=== PATIENT | female | born 1940 | race Caucasian/White ===

== ENCOUNTER 2021-07-06 15:25 | Outpatient (REF) | payer MEDICARE, SELFPAY ==
[2021-07-06 16:01] LABS: MANUAL DIFF FLAG NO
[2021-07-06 16:02] LABS: Basophils Percent Auto 0.4 % (0-2); Eosinophils Percent Auto 0.8 % (0-4); Hematocrit 32.3 % (37.0-47.0); Hemoglobin 10.6 g/dl (12.0-16.0); Imm Gran Abs Auto 0.01 X10*3/uL (0.00-0.03); Imm Gran Pct Auto 0.4 % (0.0-0.4); Lymphocytes Absolute Auto 1.1 X10*3/uL (1.2-4.9); Lymphocytes Percent Auto 42.8 % (20-40); Mean Corpuscular HGB Conc 32.8 g/dl (31.0-35.0); Mean Corpuscular Hemoglobin 32.1 pg (27.0-33.0); Mean Corpuscular Volume 97.9 fL (80.0-98.0); Mean Platelet Volume 8.6 fL (9.4-12.3); Monocytes Absolute Auto 0.2 X10*3/uL (0.1-1.2); Monocytes Percent Auto 9.1 % (2-11); Neutrophils Absolute Auto 1.2 x10*3/uL (2.0-8.3); Neutrophils Percent Auto 46.5 % (45-73); Platelet Count 118 X10*3/uL (160-400); Red Cell Distribution Width 13.1 % (11.0-16.0); White Blood Count 2.6 X10*3/uL (4.8-10.8)
[2021-07-06 16:19] LABS: Alanine Aminotransferase 22 U/L (0-31); Albumin Level 3.7 g/dL (3.5-5.0); Alkaline Phosphatase 169 U/L (39-117); Anion Gap 16 (12-20); Aspartate Amino Transferase 34 U/L (5-31); Bilirubin Total 0.4 mg/dL (0.0-1.0); Blood Urea Nitrogen 23 mg/dL (9-16); Calcium 9.2 mg/dL (8.4-10.2); Carbon Dioxide 16 mmol/L (22-29); Chloride 100 mmol/L (96-108); Estimated Glomerular Filt Rate 49; Glucose Random 97 mg/dL (60-115); Sodium 127 mmol/L (135-145); Total Protein 7.5 g/dL (6.5-8.0)
== END 2021-07-06 15:26 | disposition home or self-care (01) ==
LOC: HO.LAB 15:25
PROVIDERS: PCP Nurse Practitioner Family; Visit Provider Nurse Practitioner Family
DX: D72.819 Decreased white blood cell count, unspecified (principal); R79.89 Other specified abnormal findings of blood chemistry
CPT/HCPCS: 36415; 80053; 85025

== ENCOUNTER 2022-09-04 15:41 | Inpatient (IN) | payer MEDICARE, SELFPAY ==
--- NOTE | ~2022-09-04 | CT_ITS ---
EXAMINATION: CT CERVICAL SPINE WITHOUT CONTRAST CLINICAL INFORMATION: Status post fall. COMPARISON: None available. TECHNIQUE: Axial 3 mm thin and reformatted 2 mm thin sagittal and coronal images of cervical spine were obtained. This CT examination was performed using dose optimization techniques as appropriate, variously including the following: *Automated exposure control *Adjustment of mA and/or kV according to patient size (this includes techniques or standardized protocols for targeted exams where dose is matched to indication/reason for exam; i.e. extremities or head) *Use of iterative reconstruction technique DLP: 764 mGy-cm FINDINGS: There is mild straightening of cervical lordosis with grade 1 anterolisthesis C3 over C4. Rest of the vertebral alignment is normal. There is loss of C4-C5, C5-C6 and C6-C7 disc heights. The craniovertebral junction and the C1-C2 alignment is normal. There is mild C2-C3, C3-C4 and C4-C5 facet joint arthropathy and mild hypertrophy. There is no visible acute fracture, dislocation or subluxation. There is mild bilateral apical pleural thickening. The airway is widely patent. Thyroid lobes visualized submandibular and parotid glands are symmetrical and normal. No soft tissue mass or abnormal lymph nodes seen in the neck. CT/CT cervical spine wo IV con IMPRESSION: 1. No acute fracture, dislocation or subluxation seen. 2. There is grade 1 anterolisthesis C3 over C4. There are degenerative disc changes C4-C5, C5-C6 and C6-C7 disc levels. Fleischner guidelines were followed.
--- NOTE | ~2022-09-04 | CT_ITS ---
CT THORACIC SPINE CLINICAL INFORMATION: Post kyphoplasty. COMPARISON: Abdominal CT 09/04/2022. TECHNIQUE: A limited CT studies obtained of the thoracic spine spanning the mid T10 through the mid L2 levels. This CT examination was performed using dose optimization techniques as appropriate, variously including the following: *Automated exposure control *Adjustment of mA and/or kV according to patient size (this includes techniques or standardized protocols for targeted exams where dose is matched to indication/reason for exam; i.e. extremities or head) *Use of iterative reconstruction technique CT/CT thoracic spine post vert FINDINGS/IMPRESSION: Limited CT study demonstrates postoperative changes following vertebral body augmentation at T12. The cement is located entirely within the fractured T12 vertebral body. The T12 compression fracture is associated with similar 40% vertebral body height loss and 4 mm posterior vertebral body retropulsion.
--- NOTE | ~2022-09-04 | IR_ITS ---
EXAMINATION: IR THORACIC VERTEBROPLASTY CLINICAL INFORMATION: Acute T 12 compression fracture. Osteoporosis. COMPARISON: None available. TECHNIQUE: Following explaining fluoroscopy-guided T12 kyphoplasty procedure, benefits and risk, a written consent was obtained. Patient was placed prone on fluoroscopy table in angiography suite and T12 was localized on the skin. The area marked on the skin was cleaned and draped in usual sterile manner with 2% chlorhexidine solution. Sterile gown, mask, gloves and boots, including sterile drape was utilized during the exam. 1% lidocaine was injected subcutaneously. A 20-gauge spinal needle was then inserted from the skin to the level of right pedicle periosteum and 0.25 Marcaine was injected. Through a small skin incision 18-gauge Kyphon needle was advanced from the skin to the level of pedicle and through the pedicle into posterior one thirds of T12 vertebra. A second needle was advanced in a similar fashion from the skin to the left pedicle and through the left pedicle into posterior one-thirds of T12 vertebra. A simple hand drill was advanced to the right and left pedicle and track created. High tensile balloons were then inserted through the right needle followed by left needle and inflated to 300 psi for 5 minutes. The right balloon was deflated and freshly prepared polymethyl methacrylate was injected from the right needle to maintain the achieved height after balloon inflation. Quickly the left balloon was deflated and removed. Cement was then injected through the left needle under fluoroscopy into the T12 vertebra. After inserting adequate cement and observing no cement leak, both needles were withdrawn and complete hemostasis achieved at puncture site. Simple Band-Aid applied postprocedure. Patient was sedated by anesthesia department. FINDINGS: There is acute T12 compression fracture with approximately 35-40% loss of vertebral height. There is cement occupying the entire anterior two thirds of T12 vertebra with no cement extravasation visualized. FLUOROSCOPY TIME: 9.3 minutes. DOSE AREA PRODUCT: 2974 uGy-m2 (microgray-meter squared). IR/IR kyphoplasty thoracic IMPRESSION: 1. Successful fluoroscopic-guided T12 kyphoplasty. There is no cement leak. 2. Recommend physical therapy if clinically indicated and follow up with treatment and bone mineral density for osteoporosis.
--- NOTE | ~2022-09-04 | CT_ITS ---
EXAMINATION: CT ABDOMEN AND PELVIS WITH CONTRAST CLINICAL INFORMATION: Status post fall with low back pain and low platelets. COMPARISON: None available. TECHNIQUE: Multidetector volumetric images were obtained from the superior aspect of the liver through the pubic symphysis following administration 85 mL of Omnipaque 350 intravenous contrast. Sagittal and coronal reformatted images were obtained on the technologist's workstation. Oral contrast: No This CT examination was performed using dose optimization techniques as appropriate, variously including the following: *Automated exposure control *Adjustment of mA and/or kV according to patient size (this includes techniques or standardized protocols for targeted exams where dose is matched to indication/reason for exam; i.e. extremities or head) *Use of iterative reconstruction technique DLP: 349 mGy-cm FINDINGS: LUNG BASES: The lung bases are clear. The heart size is normal. LIVER, GALLBLADDER, AND BILIARY TREE: The liver is normal in size, shape, and attenuation. No focal hepatic lesion or biliary ductal dilatation is present. There is a gallbladder is distended with likely phrygian cap. The soft tissue thickening and/or mass within the phrygian cap best visualized on axial image 23/2. PANCREAS: Unremarkable. SPLEEN: Unremarkable. ADRENAL GLANDS: Unremarkable. KIDNEYS AND URETERS: The kidneys are normal in size, shape, and attenuation. No hydronephrosis, hydroureter, or calculi seen. No perinephric stranding. BLADDER: The bladder is nondistended with mild bladder wall thickening.. GASTROINTESTINAL TRACT: There is scattered stool and gas seen throughout the colon without significant distention. The small bowel loops are of normal caliber. Appendix is not seen with certainty.. ABDOMINAL WALL: No significant hernia is appreciated. LYMPH NODES: Normal. VASCULAR: There is atherosclerotic calcification of abdominal aorta without aneurysmal dilatation. PELVIC VISCERA: There is no free air or free fluid. The uterus is likely surgically absent or atrophied. OSSEOUS STRUCTURES: There is a compression fracture T12 vertebra with small posterior bony component projecting into the spinal canal. . Diffuse mild osteopenia CT/CT abdomen pelvis w IV con IMPRESSION: Acute T12 compression fracture with a small posterior bony component projecting in the spinal canal. This can be further treated with kyphoplasty. Mild constipation Fleischner guidelines were followed.
--- NOTE | ~2022-09-04 | CT_ITS ---
EXAMINATION: CT HEAD WITHOUT CONTRAST CLINICAL INFORMATION: Status post fall COMPARISON: None available. TECHNIQUE: Contiguous axial imaging was performed from the skull base to vertex without intravenous administration of contrast. This CT examination was performed using dose optimization techniques as appropriate, variously including the following: *Automated exposure control *Adjustment of mA and/or kV according to patient size (this includes techniques or standardized protocols for targeted exams where dose is matched to indication/reason for exam; i.e. extremities or head) *Use of iterative reconstruction technique DLP: 553 mGy-cm FINDINGS: There is no acute intra-axial, extra-axial bleed, masses or midline shift. There is no acute infarction in evolution. The duvall to white matter differentiation is maintained normal. There is diffuse periventricular hypodensity suggestive of chronic small vessel ischemic changes. Bone windows reveal no calvarial abnormality. Bilateral paranasal sinuses and mastoid air cells are well-aerated. CT/CT head/brain wo IV con IMPRESSION: 1. No acute intracranial process seen. 2. Chronic small vessel ischemic changes in both cerebral hemispheres.
[2022-09-04 15:49] VITALS: BP 151/73; PULSE 78; RESP 16; TEMP 36.4; O2SAT 94; BMI 21.1
--- NOTE | 2022-09-04 16:23 | ED.FALL ---
HPI - Fall General Chief Complaint: Fall Stated Complaint: WITNESSED FALL,SKIN TEAR R ARM,REFUSED COLLAR Time Seen by Provider: 09/04/22 16:23 Source: patient Mode of arrival: ambulatory Limitations: no limitations History of Present Illness HPI Narrative: 82 years old history of alcohol use, hypertension has not taken medication for last 2 weeks walks without any support was walking in the kitchen lost balance and fell hitting her right forearm to the Fridge and had the Fridge door and the lower back to the ground no loss of consciousness no chest pain or palpitation patient remember the fall feels just mechanical fall no history of frequent falls no headache or neck pain complaining of low back pain never had any back problem before. In the ER patient was nauseated and vomited small amount once Related Data Home Medications Medication Instructions Recorded Confirmed allopurinol 100 mg tablet 100 mg PO DAILY 09/04/22 09/04/22 donepezil 10 mg tablet 10 mg PO DAILY 09/04/22 09/04/22 hydralazine 25 mg tablet 25 mg PO TID 09/04/22 09/04/22 lisinopril 2.5 mg tablet 2.5 mg PO DAILY 09/04/22 09/04/22 metoprolol succinate 50 mg 50 mg PO DAILY 09/04/22 09/04/22 tablet,extended release 24 hr thiamine HCl (vitamin B1) 50 mg 50 mg PO DAILY 09/04/22 09/04/22 tablet Allergies Allergy/AdvReac Type Severity Reaction Status Date / Time penicillin V Allergy Unknown Verified 10/06/15 00:00 Penicillins [PCN] Allergy Unknown RASH Unverified 01/03/20 17:22 Review of Systems Review of Systems: Yes all other systems are reviewed and are negative COUNTS INCLUDE 234 BEDS AT THE [facility] Past Medical History Medical History Gout Hypertension Surgical History H/O: hysterectomy History of appendectomy Social History Social History Alcohol intake: current Alcohol intake frequency: 0-2 drinks per day Smoked in Last 30 Days: No Use of substances other than those prescribed or required for medical reasons: No Advance Directives: No Advance Directives Information Provided: Yes Physical Exam Vital Signs: Vital Signs: Last Vital Signs Temp 97.9 F 09/04/22 23:12 Pulse 85 09/04/22 23:12 Resp 16 09/04/22 23:12 BP 168/95 H 09/04/22 23:12 Pulse Ox 93 09/04/22 23:12 O2 Del Method Room Air 09/04/22 23:12 BMI result Body Mass Index 21.1 Appearance: Alert. Oriented X3. No acute distress. Eyes: PERRLA, No Nystagmus ENT: Pharynx normal. Oral Mucosa moist Neck: Normal inspection. Neck supple. CVS: Normal heart rate and rhythm. Pulses normal. Respiratory: No respiratory distress. Equal air entry bilateral, no wheezing/rales/rhonchi Abdomen: Soft and nontender. Bowel sounds are present, no mass palpable, no CVA tenderness Skin: Skin warm and dry. Normal skin color. Normal skin turgor. Extremities: No lower extremity edema. No calf tenderness , skin tear right forearm back; midline tenderness T12, L1 spine Neuro: Oriented X 3. No motor deficit. No sensory deficit deep tendon reflexes 2+ good range of movement of lower extremities secral sensation intact Medications Administered Discontinued Medications Generic Name Dose Route Start Last Admin Trade Name Freq PRN Reason Stop Dose Admin Morphine Sulfate 4 mg 09/04/22 16:32 09/04/22 16:49 Morphine Sulfate 4 Mg/Ml Cartridge IVPUSH 09/04/22 16:33 4 mg ONCE ONE Administration Protocol Morphine Sulfate 4 mg 09/04/22 22:22 09/04/22 23:08 Morphine Sulfate 4 Mg/Ml Cartridge IVPUSH 09/04/22 22:23 4 mg ONCE ONE Administration Protocol Ondansetron HCl 4 mg 09/04/22 16:23 09/04/22 16:28 Ondansetron Odt 4 Mg Tab.Rapdis TRANSLINGU 09/04/22 16:24 4 mg ONCE ONE Administration Ondansetron HCl 4 mg 09/04/22 18:18 09/04/22 18:20 Ondansetron Hcl 4 Mg/2 Ml Vial IVPUSH 09/04/22 18:19 4 mg ONCE ONE Administration Medical Decision Making Medical Decision Making MDM Narrative: Patient with mechanical fall with acute T12 fracture without any neuro deficit. Case discussed with neurosurgery at [facility] surgical candidate back brace and possible vertebroplasty. Case discussed Dr. lugo who saw the CT scan will do vertebroplasty in 2 days. Consult Healthcare Provider Management of the patient was discussed with: Hospitalist Lab Data MDM Lab Attestation statement: I reviewed the patient's lab results. 09/04/22 16:47 09/04/22 16:47 Labs: Lab Results 09/04/22 09/04/22 09/04/22 Range/Units 16:47 16:47 16:47 WBC 3.0 L (4.8-10.8) X10*3/uL RBC 4.12 L D (4.20-5.50) X10*6/uL Hgb 13.2 D (12.0-16.0) g/dl Hct 39.7 D (37.0-47.0) % MCV 96.4 (80.0-98.0) fL MCH 32.0 (27.0-33.0) pg MCHC 33.2 (31.0-35.0) g/dl RDW 13.5 (11.0-16.0) % Plt Count 104 L (160-400) X10*3/uL MPV 8.3 L (9.4-12.3) fL Immature Gran % (Auto) 1.7 H (0.0-0.4) % Neut % (Auto) 69.5 (45-73) % Lymph % (Auto) 25.5 (20-40) % Haralson % (Auto) 3.0 (2-11) % Eos % (Auto) 0.0 (0-4) % Baso % (Auto) 0.3 (0-2) % Lymph # (Auto) 0.8 L (1.2-4.9) X10*3/uL Haralson # (Auto) 0.1 (0.1-1.2) X10*3/uL Eos # (Auto) 0.0 (0.0-0.4) X10*3/uL Baso # (Auto) 0.0 (0.0-0.2) X10*3/uL Abs Immat Gran (auto) 0.05 H (0.00-0.03) X10*3/uL Absolute Neuts (auto) 2.1 (2.0-8.3) x10*3/uL Absolute Nucleated RBC 0.000 (0.0-0.012) X10*3/uL Nucleated RBC % (auto) 0.0 (0.0-0.2) /100WBC PT (10.0-13.1) SEC INR (0.9-1.1) Sodium Cancelled 140 Potassium Cancelled 4.4 Chloride Cancelled 106 Carbon Dioxide Cancelled 22 Anion Gap Cancelled 16 BUN Cancelled 21 H Creatinine Cancelled 0.95 Estim Creat Clear Calc Cancelled 33.2 Estimated GFR Cancelled 56 Random Glucose Cancelled 137 H Calcium Cancelled 9.7 Total Bilirubin Cancelled 0.6 AST Cancelled 37 H ALT Cancelled 18 Alkaline Phosphatase Cancelled 183 H Troponin I High Sens (<3.5-17.0) ng/L Total Protein Cancelled 7.9 Albumin Cancelled 3.9 Ethyl Alcohol < 10 mg/dL 09/04/22 09/04/22 Range/Units 16:48 16:48 WBC (4.8-10.8) X10*3/uL RBC (4.20-5.50) X10*6/uL Hgb (12.0-16.0) g/dl Hct (37.0-47.0) % MCV (80.0-98.0) fL MCH (27.0-33.0) pg MCHC (31.0-35.0) g/dl RDW (11.0-16.0) % Plt Count (160-400) X10*3/uL MPV (9.4-12.3) fL Immature Gran % (Auto) (0.0-0.4) % Neut % (Auto) (45-73) % Lymph % (Auto) (20-40) % Haralson % (Auto) (2-11) % Eos % (Auto) (0-4) % Baso % (Auto) (0-2) % Lymph # (Auto) (1.2-4.9) X10*3/uL Haralson # (Auto) (0.1-1.2) X10*3/uL Eos # (Auto) (0.0-0.4) X10*3/uL Baso # (Auto) (0.0-0.2) X10*3/uL Abs Immat Gran (auto) (0.00-0.03) X10*3/uL Absolute Neuts (auto) (2.0-8.3) x10*3/uL Absolute Nucleated RBC (0.0-0.012) X10*3/uL Nucleated RBC % (auto) (0.0-0.2) /100WBC PT 11.9 (10.0-13.1) SEC INR 1.0 (0.9-1.1) Sodium Potassium Chloride Carbon Dioxide Anion Gap BUN Creatinine Estim Creat Clear Calc Estimated GFR Random Glucose Calcium Total Bilirubin AST ALT Alkaline Phosphatase Troponin I High Sens < 2.7 (<3.5-17.0) ng/L Total Protein Albumin Ethyl Alcohol mg/dL Independent Interpretation I performed an independent interpretation of an: EKG Interpretation: Normal sinus rhythm heart rate 79 beats per minute normal interval normal axis no acute ST changes no acute ischemia Radiology Impression Discussion of test interpretation with radiology: I discussed test interpretation with the radiologist and I have reviewed the radiologist's reading. Radiologist Impression: CT/CT abdomen pelvis w IV con IMPRESSION: Acute T12 compression fracture with a small posterior bony component projecting in the spinal canal. This can be further treated with kyphoplasty. ? Mild constipation ?There is acute T12 compression fracture with small posterior bony component projecting into the spinal canal but no spinal canal stenosis or narrowing seen. The neural foramina are widely patent. Fleischner guidelines were followed. Discharge Plan Discharge Clinical Impression: T12 compression fracture, Fall Patient Disposition: Admitted As Inpatient
[2022-09-04] MEDS: Ondansetron ODT 4 MG TAB.RAPDIS TRANSLINGU (16:28)
--- NOTE | 2022-09-04 16:30 | ECG_ITS ---
Test Reason : FALL Blood Pressure : / mmHG Vent. Rate : 079 BPM Atrial Rate : 079 BPM P-R Int : 150 ms QRS Dur : 072 ms QT Int : 380 ms P-R-T Axes : 009 -23 018 degrees QTc Int : 435 ms Normal sinus rhythm Nonspecific T wave abnormality Abnormal ECG No previous ECGs available Referred By: Marv Mcleod Electronically Signed By:Fitz White
[2022-09-04] MEDS: Morphine Sulfate 4 MG/ML CARTRIDGE IVPUSH ×2 (16:49→23:08)
[2022-09-04 16:50] LABS: MANUAL DIFF FLAG NO
[2022-09-04 16:52] LABS: Basophils Percent Auto 0.3 % (0-2); Hematocrit 39.7 % (37.0-47.0); Hemoglobin 13.2 g/dl (12.0-16.0); Imm Gran Abs Auto 0.05 X10*3/uL (0.00-0.03); Imm Gran Pct Auto 1.7 % (0.0-0.4); Lymphocytes Absolute Auto 0.8 X10*3/uL (1.2-4.9); Lymphocytes Percent Auto 25.5 % (20-40); Mean Corpuscular HGB Conc 33.2 g/dl (31.0-35.0); Mean Corpuscular Volume 96.4 fL (80.0-98.0); Mean Platelet Volume 8.3 fL (9.4-12.3); Monocytes Absolute Auto 0.1 X10*3/uL (0.1-1.2); Neutrophils Absolute Auto 2.1 x10*3/uL (2.0-8.3); Neutrophils Percent Auto 69.5 % (45-73); Platelet Count 104 X10*3/uL (160-400); Red Blood Count 4.12 X10*6/uL (4.20-5.50); Red Cell Distribution Width 13.5 % (11.0-16.0)
[2022-09-04 17:01] LABS: Prothrombin Time 11.9 SEC (10.0-13.1)
--- NOTE | 2022-09-04 17:11 | PC.NURSE ---
20g IV placed in LAC, all labs drawn. Pt is now resting with some relief with morphine. Hot pack placed on back
[2022-09-04 17:14] LABS: Alanine Aminotransferase 18 U/L (0-31); Albumin Level 3.9 g/dL (3.5-5.0); Alkaline Phosphatase 183 U/L (39-117); Anion Gap 16 (12-20); Aspartate Amino Transferase 37 U/L (5-31); Bilirubin Total 0.6 mg/dL (0.0-1.0); Blood Urea Nitrogen 21 mg/dL (9-16); Calcium 9.7 mg/dL (8.4-10.2); Carbon Dioxide 22 mmol/L (22-29); Chloride 106 mmol/L (96-108); Creatinine Clr Calc Pharmacy 33.2; Estimated Glomerular Filt Rate 56; Ethanol < 10 mg/dL; Glucose Random 137 mg/dL (60-115); Potassium 4.4 mmol/L (3.3-5.1); Sodium 140 mmol/L (135-145); Total Protein 7.9 g/dL (6.5-8.0)
[2022-09-04 17:14] LABS: Troponin-I High Sensitivity < 2.7 ng/L (<3.5-17.0)
[2022-09-04] MEDS: ondansetron HCL 4 MG/2 ML VIAL IVPUSH (18:20)
[2022-09-04 22:06] VITALS: BP 154/71; PULSE 73; RESP 16; TEMP 36.9; O2SAT 91
--- NOTE | 2022-09-04 23:11 | PM.IMHP ---
History of Present Illness Date of Service: 09/04/22 Chief Complaint: fall 82-year-old female past medical history of hypertension, gout presents to the hospital with complaints of a fall and pain in the midback. Patient reports that she was standing, went to turn around, slipped and fell, no head injury, she fell on her back, no loss of consciousness prior or after, no seizure-like activity, no chest pain, no palpitations, no dizziness, no headache no change in vision, denies any nausea vomiting, no abdominal pain, no diarrhea constipation, no urinary symptoms and no lower extremity edema. she has mid back pain, 10/10, constant, nonradiating, no associated with numbness tingling or weakness in the lower extremities. On arrival to the ED patient found to have slightly elevated blood pressure but otherwise stable Labs are significant for WBC count of 3.0, hemoglobin of 13.2, hematocrit 39.7, labs otherwise unremarkable, no acute infection, slightly elevated AST of 37, patient does drink 3 short in a per day, no history of alcohol withdrawals abdomen pelvic CT shows T12 compression fracture with a small posterior bony component projecting in the spina canal, this can be treated with kyphoplasty Dr. Garner from Interventional Radiology was also called by ED after reviewing CT states that will do kyphoplasty on Tuesday, neurosurgery from [facility] was consulted, Recommended medical intervention. Review of Systems Review of Systems: Yes all other systems are reviewed and are negative [facility] Medical History Gout Hypertension Surgical History H/O: hysterectomy History of appendectomy Social History Alcohol intake: current Alcohol intake frequency: 0-2 drinks per day Smoked in Last 30 Days: No Use of substances other than those prescribed or required for medical reasons: No Advance Directives: No Advance Directives Information Provided: Yes Meds Allergies Allergy/AdvReac Type Severity Reaction Status Date / Time penicillin V Allergy Unknown Verified 10/06/15 00:00 Penicillins [PCN] Allergy Unknown RASH Unverified 01/03/20 17:22 Active Medications: Current Medications Acetaminophen (Acetaminophen 325 Mg Tablet) 650 mg PO Q6H PRN PRN Reason: Pain, Mild (Pain Scale 1-3) Docusate Sodium (Docusate Sodium 100 Mg Capsule) 100 mg PO DAILY PRN PRN Reason: Constipation Enoxaparin Sodium (Enoxaparin Sodium 40 Mg/0.4 Ml Syringe) 40 mg SUBCUT Q24H ZEYAD Morphine Sulfate (Morphine Sulfate 4 Mg/Ml Cartridge) 4 mg IVPUSH Q4H PRN; Protocol PRN Reason: Pain, Severe (Pain Scale 7-10) Ondansetron HCl (Ondansetron Hcl 4 Mg/2 Ml Vial) 4 mg IVPUSH Q8H PRN PRN Reason: Nausea and Vomiting Sodium Chloride (0.9 % Sodium Chloride Flush 3 Ml Syringe) 3 ml IVFLUSH QSHIFT ZEYAD Physical Exam Vital Signs and Narrative: Vital Signs: Last Vital Signs Temp 98.4 F 09/04/22 22:06 Pulse 73 09/04/22 22:06 Resp 16 09/04/22 22:06 BP 154/71 H 09/04/22 22:06 Pulse Ox 91 L 09/04/22 22:06 O2 Del Method Room Air 09/04/22 22:06 BMI result Body Mass Index 21.1 Const: General: cooperative and no acute distress Orientation/consciousness: patient oriented x3 Eyes: General: appearance normal, both eyes and all related structures Resp: Effort & Inspection: normal respiratory effort Auscultation: clear to auscultation bilaterally Cardio: Rate: regular rate Rhythm: regular rhythm GI: Palpation (GI): Soft to palpation Auscultation: normal bowel sounds Skin: General skin exam: no rashes or lesions noted Neuro: General: patient oriented x3 Cognition (Neuro): normal cognition Extrem: Other: patient has limited movement due to the severe pain she is experiencing in her back General: Yes normal to inspection and Yes no pedal edema Results Labs 09/04/22 16:47 09/04/22 16:47 Labs: Laboratory Results - last 24 hr 09/04/22 09/04/22 09/04/22 16:47 16:47 16:47 MCV 96.4 MCH 32.0 MCHC 33.2 RDW 13.5 Plt Count 104 L MPV 8.3 L Immature Gran % (Auto) 1.7 H Neut % (Auto) 69.5 Lymph % (Auto) 25.5 Armstrong % (Auto) 3.0 Eos % (Auto) 0.0 Baso % (Auto) 0.3 Lymph # (Auto) 0.8 L Armstrong # (Auto) 0.1 Eos # (Auto) 0.0 Baso # (Auto) 0.0 Abs Immat Gran (auto) 0.05 H Absolute Neuts (auto) 2.1 Absolute Nucleated RBC 0.000 Nucleated RBC % (auto) 0.0 PT INR Anion Gap Cancelled 16 Estim Creat Clear Calc Cancelled 33.2 Estimated GFR Cancelled 56 Random Glucose Cancelled 137 H Calcium Cancelled 9.7 Total Bilirubin Cancelled 0.6 AST Cancelled 37 H ALT Cancelled 18 Alkaline Phosphatase Cancelled 183 H Troponin I High Sens Total Protein Cancelled 7.9 Albumin Cancelled 3.9 Ethyl Alcohol < 10 09/04/22 09/04/22 16:48 16:48 MCV MCH MCHC RDW Plt Count MPV Immature Gran % (Auto) Neut % (Auto) Lymph % (Auto) Armstrong % (Auto) Eos % (Auto) Baso % (Auto) Lymph # (Auto) Armstrong # (Auto) Eos # (Auto) Baso # (Auto) Abs Immat Gran (auto) Absolute Neuts (auto) Absolute Nucleated RBC Nucleated RBC % (auto) PT 11.9 INR 1.0 Anion Gap Estim Creat Clear Calc Estimated GFR Random Glucose Calcium Total Bilirubin AST ALT Alkaline Phosphatase Troponin I High Sens < 2.7 Total Protein Albumin Ethyl Alcohol Imaging Radiologist's Impressions: Impressions Cervical Spine CT 09/04/22 18:32 IMPRESSION: 1. No acute fracture, dislocation or subluxation seen. 2. There is grade 1 anterolisthesis C3 over C4. There are degenerative disc changes C4-C5, C5-C6 and C6-C7 disc levels. Fleischner guidelines were followed. Head CT 09/04/22 18:32 IMPRESSION: 1. No acute intracranial process seen. 2. Chronic small vessel ischemic changes in both cerebral hemispheres. Abdomen/Pelvis CT 09/04/22 18:56 IMPRESSION: Acute T12 compression fracture with a small posterior bony component projecting in the spinal canal. This can be further treated with kyphoplasty. Mild constipation Fleischner guidelines were followed. 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 Quality Stroke Does the patient have a stroke diagnosis?: No VTE Prior VTE?: No VTE Risk Level:: Medical - moderate - high VTE Device Contraindication: Treatment Not Indicated VTE Drug Contraindication: N/A - Med Ordered
[2022-09-04 23:12] VITALS: BP 168/95; PULSE 85; RESP 16; TEMP 36.6; O2SAT 93
--- NOTE | 2022-09-04 23:50 | MHC.EDTECH ---
i took over this assignment 9-, vitals taken and entered pt has a rodriguez cath
[2022-09-05] VITALS (7 sets, daily range): BP systolic 127–173; BP diastolic 62–79; PULSE 65–81; RESP 16–18; TEMP 36.3–36.9; O2SAT 88–98; BMI 20.8
[2022-09-05] MEDS: Morphine Sulfate 4 MG/ML CARTRIDGE IVPUSH (06:13)
[2022-09-05 06:38] LABS: Basophils Percent Auto 0.3 % (0-2); Eosinophils Percent Auto 0.6 % (0-4); Hematocrit 31.4 % (37.0-47.0); Hemoglobin 10.5 g/dl (12.0-16.0); Imm Gran Abs Auto 0.02 X10*3/uL (0.00-0.03); Imm Gran Pct Auto 0.6 % (0.0-0.4); Lymphocytes Absolute Auto 1.4 X10*3/uL (1.2-4.9); Lymphocytes Percent Auto 45.8 % (20-40); MANUAL DIFF FLAG NO; Mean Corpuscular HGB Conc 33.4 g/dl (31.0-35.0); Mean Corpuscular Hemoglobin 31.9 pg (27.0-33.0); Mean Corpuscular Volume 95.4 fL (80.0-98.0); Mean Platelet Volume 8.9 fL (9.4-12.3); Monocytes Absolute Auto 0.3 X10*3/uL (0.1-1.2); Monocytes Percent Auto 10.4 % (2-11); Neutrophils Absolute Auto 1.3 x10*3/uL (2.0-8.3); Neutrophils Percent Auto 42.3 % (45-73); Platelet Count 110 X10*3/uL (160-400); Red Blood Count 3.29 X10*6/uL (4.20-5.50); Red Cell Distribution Width 13.5 % (11.0-16.0); White Blood Count 3.1 X10*3/uL (4.8-10.8)
[2022-09-05 06:50] LABS: Anion Gap 12 (12-20); Blood Urea Nitrogen 17 mg/dL (9-16); Calcium 8.8 mg/dL (8.4-10.2); Carbon Dioxide 24 mmol/L (22-29); Chloride 106 mmol/L (96-108); Creatinine Clr Calc Pharmacy 40.5; Estimated Glomerular Filt Rate > 60; Glucose Random 91 mg/dL (60-115); Sodium 138 mmol/L (135-145)
[2022-09-05] MEDS: Enoxaparin Sodium 40 MG/0.4 ML SYRINGE SUBCUT (09:11)
[2022-09-05] MEDS: 0.9 % Sodium Chloride Flush 3 ML SYRINGE IVFLUSH ×2 (09:12→22:51)
--- NOTE | 2022-09-05 09:20 | PHA.MEDREC ---
Pharmacy Consult ? Medication Reconciliation Pharmacy has completed the medication reconciliation. Spoke to patient and family members to confirm medications.
[2022-09-05] MEDS: hydrALAZINE HCl 25 MG TABLET PO ×3 (10:38→20:44)
[2022-09-05] MEDS: oxyCODONE HCl Immed Release 5 MG TABLET PO ×2 (10:38→20:44)
[2022-09-05] MEDS: Donepezil HCl 10 MG TABLET PO (10:38)
[2022-09-05] MEDS: Metoprolol Succinate ER 50 MG TAB.ER.24H PO (10:39)
[2022-09-05] MEDS: Thiamine HCL 100 MG TABLET 50 MG PO (10:39)
--- NOTE | 2022-09-05 10:59 | HO.PM.IMPN ---
Subjective Subjective Date of Service: 09/05/22 Interval History: seen and examined this morning Follow-up for back pain, compression fracture Comfortable if remains still but reporting back pain with movement. No pain radiating down legs. No urinary or fecal incontinence Review of Systems Review of Systems: Yes all other systems are reviewed and are negative Constitutional Constitutional: Denies chills and Denies fever(s) Cardiovascular Cardiovascular: Denies chest pain, Denies palpitations and Denies dyspnea Respiratory Respiratory: Denies cough and Denies dyspnea Gastrointestinal Gastrointestinal: Denies abdominal pain, Denies nausea and Denies vomiting Endocrine Endocrine: Denies palpitations Physical Exam Vital Signs: Vital Signs: Last Vital Signs Temp 97.6 F 09/05/22 07:32 Pulse 65 09/05/22 07:32 Resp 16 09/05/22 07:32 BP 127/62 09/05/22 07:32 Pulse Ox 97 09/05/22 07:32 O2 Del Method Nasal Cannula 09/05/22 07:32 O2 Flow Rate 2 09/05/22 07:32 BMI result Body Mass Index 20.8 Const: General: cooperative, comfortable, alert and awake Nutritional Appearance: average body habitus Orientation/consciousness: patient oriented x3 Resp: Effort & Inspection: normal respiratory effort and able to speak in complete sentences Auscultation: clear to auscultation bilaterally Cardio: Rate: regular rate Heart sounds: S1 normal heart sound present and S2 normal heart sound present GI: Inspection: No distended Palpation (GI): Soft to palpation and nontender Neuro: Other: able to move both lower extremities, but causes back pain General: patient oriented x3, moves all extremities and CN's II-XI intact bilaterally Extrem: General: Yes no pedal edema Objective Data Active Medications Acetaminophen (Acetaminophen 325 Mg Tablet) 650 mg PO Q6H PRN PRN Reason: Pain, Mild (Pain Scale 1-3) Allopurinol (Allopurinol 100 Mg Tablet) 100 mg PO DAILY [facility] Docusate Sodium (Docusate Sodium 100 Mg Capsule) 100 mg PO DAILY PRN PRN Reason: Constipation Donepezil HCl (Donepezil Hcl 10 Mg Tablet) 10 mg PO DAILY [facility] Last Admin: 09/05/22 10:38 Dose: 10 mg Documented By: KHARI Enoxaparin Sodium (Enoxaparin Sodium 40 Mg/0.4 Ml Syringe) 40 mg SUBCUT Q24H [facility] Last Admin: 09/05/22 09:11 Dose: 40 mg Documented By: KHARI Hydralazine HCl (Hydralazine Hcl 25 Mg Tablet) 25 mg PO TID [facility]; Protocol Last Admin: 09/05/22 10:38 Dose: 25 mg Documented By: KHARI Metoprolol Succinate (Metoprolol Succinate Er 50 Mg Tab.Er.24h) 50 mg PO DAILY [facility]; Protocol Last Admin: 09/05/22 10:39 Dose: 50 mg Documented By: KHARI Morphine Sulfate (Morphine Sulfate 4 Mg/Ml Cartridge) 2 mg IVPUSH Q4H PRN; Protocol PRN Reason: Pain, Severe (Pain Scale 7-10) Ondansetron HCl (Ondansetron Hcl 4 Mg/2 Ml Vial) 4 mg IVPUSH Q8H PRN PRN Reason: Nausea and Vomiting Oxycodone HCl (Oxycodone Hcl Immed Release 5 Mg Tablet) 5 mg PO Q6H PRN PRN Reason: Pain, Moderate(Pain Scale 4-6) Last Admin: 09/05/22 10:38 Dose: 5 mg Documented By: KHARI Sodium Chloride (0.9 % Sodium Chloride Flush 3 Ml Syringe) 3 ml IVFLUSH QSHIFT [facility] Last Admin: 09/05/22 09:12 Dose: 3 ml Documented By: KHARI Thiamine HCl (Thiamine Hcl 100 Mg Tablet) 50 mg PO DAILY [facility] Last Admin: 09/05/22 10:39 Dose: 50 mg Documented By: KHARI Labs 09/05/22 05:38 09/05/22 05:38 Labs: Laboratory Results - last 24 hr 09/04/22 09/04/22 09/04/22 16:47 16:47 16:47 MCV 96.4 MCH 32.0 MCHC 33.2 RDW 13.5 Plt Count 104 L MPV 8.3 L Immature Gran % (Auto) 1.7 H Neut % (Auto) 69.5 Lymph % (Auto) 25.5 [place] % (Auto) 3.0 Eos % (Auto) 0.0 Baso % (Auto) 0.3 Lymph # (Auto) 0.8 L [place] # (Auto) 0.1 Eos # (Auto) 0.0 Baso # (Auto) 0.0 Abs Immat Gran (auto) 0.05 H Absolute Neuts (auto) 2.1 Absolute Nucleated RBC 0.000 Nucleated RBC % (auto) 0.0 PT INR Anion Gap Cancelled 16 Estim Creat Clear Calc Cancelled 33.2 Estimated GFR Cancelled 56 Random Glucose Cancelled 137 H Calcium Cancelled 9.7 Total Bilirubin Cancelled 0.6 AST Cancelled 37 H ALT Cancelled 18 Alkaline Phosphatase Cancelled 183 H Troponin I High Sens Total Protein Cancelled 7.9 Albumin Cancelled 3.9 Ethyl Alcohol < 10 09/04/22 09/04/22 09/05/22 16:48 16:48 05:38 MCV 95.4 MCH 31.9 MCHC 33.4 RDW 13.5 Plt Count 110 L MPV 8.9 L Immature Gran % (Auto) 0.6 H Neut % (Auto) 42.3 L Lymph % (Auto) 45.8 H [place] % (Auto) 10.4 Eos % (Auto) 0.6 Baso % (Auto) 0.3 Lymph # (Auto) 1.4 [place] # (Auto) 0.3 Eos # (Auto) 0.0 Baso # (Auto) 0.0 Abs Immat Gran (auto) 0.02 Absolute Neuts (auto) 1.3 L Absolute Nucleated RBC 0.000 Nucleated RBC % (auto) 0.0 PT 11.9 INR 1.0 Anion Gap Estim Creat Clear Calc Estimated GFR Random Glucose Calcium Total Bilirubin AST ALT Alkaline Phosphatase Troponin I High Sens < 2.7 Total Protein Albumin Ethyl Alcohol 09/05/22 05:38 MCV MCH MCHC RDW Plt Count MPV Immature Gran % (Auto) Neut % (Auto) Lymph % (Auto) [place] % (Auto) Eos % (Auto) Baso % (Auto) Lymph # (Auto) [place] # (Auto) Eos # (Auto) Baso # (Auto) Abs Immat Gran (auto) Absolute Neuts (auto) Absolute Nucleated RBC Nucleated RBC % (auto) PT INR Anion Gap 12 Estim Creat Clear Calc 40.5 Estimated GFR > 60 Random Glucose 91 Calcium 8.8 D Total Bilirubin AST ALT Alkaline Phosphatase Troponin I High Sens Total Protein Albumin Ethyl Alcohol Assessment and Plan (1) T12 compression fracture: Status: Acute Plan 82-year-old female with past medical history of hypertension, and gout presents to the hospital after a fall, found to have acute T12 compression fracture acute T12 compression fracture complicated by component projecting in the spinal canal discussed with Neurosurgery, as well as Interventional Radiology, plan for kyphoplasty on Tuesday. NPO at midnight pain control mechanical fall PT prior to discharge hypertension continue hydralazine, metoprolol lisinopril on hold gout continue allopurinol alcohol use drinks 2-3 drinks every night, with no history of withdrawals no withdrawal symptoms at this time follow CIWA ?cognitive impairment/mild dementia unspecified continue aricept DVT prophylaxis: Lovenox - received 09/05 dose, now on hold for procedure in am, can be resume following procedure attending - dr. youngblood patient requires ongoing inpatient hospitalization due to need for kyphoplasty, pain control Time Spent With Patient Time: Total time managing care of this patient today ____ minutes. Quality Stroke Does the patient have a stroke diagnosis?: No VTE Prior VTE?: No VTE Risk Level:: Medical - moderate - high VTE Device Contraindication: Treatment Not Indicated VTE Drug Contraindication: N/A - Med Ordered
--- NOTE | 2022-09-05 11:33 | MHC.CM.PN ---
CM MET WITH PT AND HER TWO DAUGHTERS AT BEDSIDE PT LIVES ALONE AND IS INDEPENDENT AT BASELINE SHE HAS NO SERVICES AND NO DME PT IS JAREK PARRA SHE THINKS SHE HAS A HCP HER PCP IS HOLLIE WAGONER IMM DELIVERED PT FEELS SHE WILL NEED STR LIST OF [facility] CONTRACTED SNFS PROVIDED PT EVAL PENDING SHE WILL NEED BLS TRANSPORT
[2022-09-05] MEDS: Docusate Sodium 100 MG CAPSULE PO (20:44)
[2022-09-06] MEDS: Morphine Sulfate 4 MG/ML CARTRIDGE 2 MG IVPUSH (00:29)
[2022-09-06 03:29] VITALS: BP 148/71; PULSE 72; RESP 14; TEMP 36.1; O2SAT 96
[2022-09-06] MEDS: oxyCODONE HCl Immed Release 5 MG TABLET PO ×2 (05:47→17:14)
[2022-09-06 06:24] LABS: MANUAL DIFF FLAG NO
[2022-09-06 06:28] LABS: Basophils Percent Auto 0.3 % (0-2); Eosinophils Percent Auto 1.3 % (0-4); Hematocrit 33.6 % (37.0-47.0); Hemoglobin 11.4 g/dl (12.0-16.0); Imm Gran Abs Auto 0.01 X10*3/uL (0.00-0.03); Imm Gran Pct Auto 0.3 % (0.0-0.4); Lymphocytes Absolute Auto 1.1 X10*3/uL (1.2-4.9); Lymphocytes Percent Auto 35.3 % (20-40); Mean Corpuscular HGB Conc 33.9 g/dl (31.0-35.0); Mean Corpuscular Hemoglobin 32.9 pg (27.0-33.0); Mean Corpuscular Volume 96.8 fL (80.0-98.0); Monocytes Absolute Auto 0.3 X10*3/uL (0.1-1.2); Monocytes Percent Auto 9.3 % (2-11); Neutrophils Absolute Auto 1.6 x10*3/uL (2.0-8.3); Neutrophils Percent Auto 53.5 % (45-73); Platelet Count 111 X10*3/uL (160-400); Red Blood Count 3.47 X10*6/uL (4.20-5.50); Red Cell Distribution Width 13.4 % (11.0-16.0)
[2022-09-06] MEDS: 0.9 % Sodium Chloride Flush 3 ML SYRINGE IVFLUSH ×3 (07:20→20:49)
[2022-09-06] MEDS: hydrALAZINE HCl 25 MG TABLET PO ×3 (07:20→20:49)
[2022-09-06] MEDS: Donepezil HCl 10 MG TABLET PO (07:21)
[2022-09-06] MEDS: allopurinoL 100 MG TABLET PO (07:21)
[2022-09-06] MEDS: Metoprolol Succinate ER 50 MG TAB.ER.24H PO (07:21)
[2022-09-06] MEDS: Thiamine HCL 100 MG TABLET 50 MG PO (07:21)
[2022-09-06 08:39] VITALS: BP 110/57; PULSE 70; RESP 20; TEMP 36.6; O2SAT 91
--- NOTE | 2022-09-06 11:10 | HO.PM.IMPN ---
Subjective Subjective Date of Service: 09/06/22 Interval History: seen and examined this morning Follow-up for back pain, compression fracture Comfortable if remains still but reporting back pain with movement. No pain radiating down legs. No urinary or fecal incontinence Review of Systems Review of Systems: Yes all other systems are reviewed and are negative Constitutional Constitutional: Denies chills and Denies fever(s) Cardiovascular Cardiovascular: Denies chest pain, Denies palpitations and Denies dyspnea Respiratory Respiratory: Denies cough and Denies dyspnea Gastrointestinal Gastrointestinal: Denies abdominal pain, Denies nausea and Denies vomiting Endocrine Endocrine: Denies palpitations Physical Exam Vital Signs: Vital Signs: Last Vital Signs Temp 97.8 F 09/06/22 08:39 Pulse 70 09/06/22 08:39 Resp 20 09/06/22 08:39 BP 110/57 L 09/06/22 08:39 Pulse Ox 91 L 09/06/22 08:39 O2 Del Method Room Air 09/06/22 08:39 O2 Flow Rate 2 09/06/22 03:29 BMI result Body Mass Index 20.8 Appearing in no acute distress lung sounds are clear to auscultation heart regular rate rhythm, clear S1, S2 positive bowel sounds, abdomen is soft, nontender neuro patient is alert x3, no focal deficits Objective Data Active Medications Acetaminophen (Acetaminophen 325 Mg Tablet) 650 mg PO Q6H PRN PRN Reason: Pain, Mild (Pain Scale 1-3) Allopurinol (Allopurinol 100 Mg Tablet) 100 mg PO DAILY [facility] Last Admin: 09/06/22 07:21 Dose: 100 mg Documented By: DAMEON Docusate Sodium (Docusate Sodium 100 Mg Capsule) 100 mg PO DAILY PRN PRN Reason: Constipation Last Admin: 09/05/22 20:44 Dose: 100 mg Documented By: JOE Donepezil HCl (Donepezil Hcl 10 Mg Tablet) 10 mg PO DAILY [facility] Last Admin: 09/06/22 07:21 Dose: 10 mg Documented By: DAMEON Enoxaparin Sodium (Enoxaparin Sodium 40 Mg/0.4 Ml Syringe) 40 mg SUBCUT Q24H [facility] Last Admin: 09/05/22 09:11 Dose: 40 mg Documented By: KHARI Hydralazine HCl (Hydralazine Hcl 25 Mg Tablet) 25 mg PO TID [facility]; Protocol Last Admin: 09/06/22 07:20 Dose: 25 mg Documented By: DAMEON Metoprolol Succinate (Metoprolol Succinate Er 50 Mg Tab.Er.24h) 50 mg PO DAILY [facility]; Protocol Last Admin: 09/06/22 07:21 Dose: 50 mg Documented By: DAMEON Morphine Sulfate (Morphine Sulfate 4 Mg/Ml Cartridge) 2 mg IVPUSH Q4H PRN; Protocol PRN Reason: Pain, Severe (Pain Scale 7-10) Last Admin: 09/06/22 00:29 Dose: 2 mg Documented By: JOE Ondansetron HCl (Ondansetron Hcl 4 Mg/2 Ml Vial) 4 mg IVPUSH Q8H PRN PRN Reason: Nausea and Vomiting Oxycodone HCl (Oxycodone Hcl Immed Release 5 Mg Tablet) 5 mg PO Q6H PRN PRN Reason: Pain, Moderate(Pain Scale 4-6) Last Admin: 09/06/22 05:47 Dose: 5 mg Documented By: JOE Sodium Chloride (0.9 % Sodium Chloride Flush 3 Ml Syringe) 3 ml IVFLUSH QSHIFT [facility] Last Admin: 09/06/22 07:20 Dose: 3 ml Documented By: DAMEON Thiamine HCl (Thiamine Hcl 100 Mg Tablet) 50 mg PO DAILY [facility] Last Admin: 09/06/22 07:21 Dose: 50 mg Documented By: DAMEON Labs 09/06/22 05:21 09/05/22 05:38 Labs: Laboratory Results - last 24 hr 09/06/22 05:21 MCV 96.8 MCH 32.9 MCHC 33.9 RDW 13.4 Plt Count 111 L MPV 9.0 L Immature Gran % (Auto) 0.3 Neut % (Auto) 53.5 Lymph % (Auto) 35.3 [place] % (Auto) 9.3 Eos % (Auto) 1.3 Baso % (Auto) 0.3 Lymph # (Auto) 1.1 L [place] # (Auto) 0.3 Eos # (Auto) 0.0 Baso # (Auto) 0.0 Abs Immat Gran (auto) 0.01 Absolute Neuts (auto) 1.6 L Absolute Nucleated RBC 0.000 Nucleated RBC % (auto) 0.0 Assessment and Plan (1) T12 compression fracture: Status: Acute Plan 82-year-old female with past medical history of hypertension, and gout presents to the hospital after a fall, found to have acute T12 compression fracture Acute T12 compression fracture secondary to fall complicated by component projecting in the spinal canal plan for kyphoplasty today pain control PT consult hypertension continue hydralazine, metoprolol lisinopril on hold gout continue allopurinol alcohol use drinks 2-3 drinks every night, with no history of withdrawals no withdrawal symptoms at this time follow CIWA ?cognitive impairment/mild dementia unspecified continue aricept DVT prophylaxis: Lovenox - received 09/05 dose, now on hold for procedure in am, can be resume following procedure attending - dr. Boyd patient requires ongoing inpatient hospitalization due to need for kyphoplasty, pain control Time Spent With Patient Time: Total time managing care of this patient today ____ minutes. Quality Stroke Does the patient have a stroke diagnosis?: No VTE Prior VTE?: No VTE Risk Level:: Medical - moderate - high VTE Device Contraindication: Treatment Not Indicated VTE Drug Contraindication: N/A - Med Ordered
[2022-09-06 13:52] VITALS: BP 122/55
--- NOTE | 2022-09-06 14:20 | MHC.CM.PN ---
EMR REVIEWED AND PER MD ROUNDS, PT NOT MEDICALLY CLEARED FOR DC (REQUIRING IV ANALGESICS, KYPHOPLASTY SCHEDULED) PER PT AND DAUGHTER, THEY ANTICIPATE STR WILL BE NEEDED BUT UNDERSTAND PT WILL NEED TO SEE BEFORE WE CAN DETERMINE PLAN. PRELIMINARY REFERRALS SENT TO PT/FAMILY CHOICES WHILE AWAITING P.T. EVAL. CM WILL CONTINUE TO FOLLOW FOR ANY CHANGE IN DC PLAN.
[2022-09-06 15:58] VITALS: BP 122/61; PULSE 85; RESP 20; TEMP 36.8; O2SAT 98
[2022-09-06 19:51] VITALS: BP 136/73; PULSE 80; RESP 16; TEMP 36.5; O2SAT 95
[2022-09-07] VITALS (12 sets, daily range): BP systolic 113–166; BP diastolic 52–81; PULSE 67–80; RESP 16–18; TEMP 36.3–37.2; O2SAT 92–97
[2022-09-07] MEDS: oxyCODONE HCl Immed Release 5 MG TABLET PO ×2 (00:40→07:41)
[2022-09-07] MEDS: Morphine Sulfate 4 MG/ML CARTRIDGE 2 MG IVPUSH ×2 (05:46→23:47)
[2022-09-07 06:29] LABS: Anion Gap 12 (12-20); Blood Urea Nitrogen 20 mg/dL (9-16); Calcium 8.5 mg/dL (8.4-10.2); Carbon Dioxide 23 mmol/L (22-29); Chloride 102 mmol/L (96-108); Creatinine Clr Calc Pharmacy 37.1; Estimated Glomerular Filt Rate > 60; Glucose Random 110 mg/dL (60-115); Potassium 3.9 mmol/L (3.3-5.1); Sodium 133 mmol/L (135-145)
[2022-09-07] MEDS: Donepezil HCl 10 MG TABLET PO (07:42)
[2022-09-07] MEDS: Thiamine HCL 100 MG TABLET 50 MG PO (07:42)
[2022-09-07] MEDS: hydrALAZINE HCl 25 MG TABLET PO ×2 (07:42→20:24)
[2022-09-07] MEDS: allopurinoL 100 MG TABLET PO (07:42)
[2022-09-07] MEDS: Metoprolol Succinate ER 50 MG TAB.ER.24H PO (07:42)
[2022-09-07] MEDS: 0.9 % Sodium Chloride Flush 3 ML SYRINGE IVFLUSH ×2 (07:43→20:22)
--- NOTE | 2022-09-07 10:11 | P.PNIM_ITS ---
Subjective Subjective Date of Service: 09/07/22 Interval History: seen and examined this morning Follow-up for back pain, compression fracture Comfortable if remains still but reporting back pain with movement. No pain radiating down legs. No urinary or fecal incontinence Review of Systems Review of Systems: Yes all other systems are reviewed and are negative Constitutional Constitutional: Denies chills and Denies fever(s) Cardiovascular Cardiovascular: Denies chest pain, Denies palpitations and Denies dyspnea Respiratory Respiratory: Denies cough and Denies dyspnea Gastrointestinal Gastrointestinal: Denies abdominal pain, Denies nausea and Denies vomiting Endocrine Endocrine: Denies palpitations Physical Exam Vital Signs: Vital Signs: Last Vital Signs Temp 98.1 F 09/07/22 07:55 Pulse 73 09/07/22 08:28 Resp 18 09/07/22 07:55 BP 122/52 L 09/07/22 08:28 Pulse Ox 92 09/07/22 08:28 O2 Del Method Room Air 09/07/22 07:55 O2 Flow Rate 2 09/06/22 03:29 BMI result Body Mass Index 20.8 Appearing in no acute distress lung sounds are clear to auscultation heart regular rate rhythm, clear S1, S2 positive bowel sounds, abdomen is soft, nontender neuro patient is alert x3, no focal deficits Objective Data Active Medications Acetaminophen (Acetaminophen 325 Mg Tablet) 650 mg PO Q6H PRN PRN Reason: Pain, Mild (Pain Scale 1-3) Allopurinol (Allopurinol 100 Mg Tablet) 100 mg PO DAILY [facility] Last Admin: 09/07/22 07:42 Dose: 100 mg Documented By: DAMEON Docusate Sodium (Docusate Sodium 100 Mg Capsule) 100 mg PO DAILY PRN PRN Reason: Constipation Last Admin: 09/05/22 20:44 Dose: 100 mg Documented By: JOE Donepezil HCl (Donepezil Hcl 10 Mg Tablet) 10 mg PO DAILY [facility] Last Admin: 09/07/22 07:42 Dose: 10 mg Documented By: DAMEON Enoxaparin Sodium (Enoxaparin Sodium 40 Mg/0.4 Ml Syringe) 40 mg SUBCUT Q24H [facility] Last Admin: 09/05/22 09:11 Dose: 40 mg Documented By: KHARI Hydralazine HCl (Hydralazine Hcl 25 Mg Tablet) 25 mg PO TID [facility]; Protocol Last Admin: 09/07/22 07:42 Dose: 25 mg Documented By: DAMEON Metoprolol Succinate (Metoprolol Succinate Er 50 Mg Tab.Er.24h) 50 mg PO DAILY [facility]; Protocol Last Admin: 09/07/22 07:42 Dose: 50 mg Documented By: DAMEON Morphine Sulfate (Morphine Sulfate 4 Mg/Ml Cartridge) 2 mg IVPUSH Q4H PRN; Protocol PRN Reason: Pain, Severe (Pain Scale 7-10) Last Admin: 09/07/22 05:46 Dose: 2 mg Documented By: ALEXYS Ondansetron HCl (Ondansetron Hcl 4 Mg/2 Ml Vial) 4 mg IVPUSH Q8H PRN PRN Reason: Nausea and Vomiting Oxycodone HCl (Oxycodone Hcl Immed Release 5 Mg Tablet) 5 mg PO Q6H PRN PRN Reason: Pain, Moderate(Pain Scale 4-6) Last Admin: 09/07/22 07:41 Dose: 5 mg Documented By: DAMEON Sodium Chloride (0.9 % Sodium Chloride Flush 3 Ml Syringe) 3 ml IVFLUSH QSHIFT [facility] Last Admin: 09/07/22 07:43 Dose: 3 ml Documented By: DAMEON Thiamine HCl (Thiamine Hcl 100 Mg Tablet) 50 mg PO DAILY [facility] Last Admin: 09/07/22 07:42 Dose: 50 mg Documented By: DAMEON Labs 09/06/22 05:21 09/07/22 05:37 Labs: Laboratory Results - last 24 hr 09/07/22 05:37 Anion Gap 12 Estim Creat Clear Calc 37.1 Estimated GFR > 60 Random Glucose 110 Calcium 8.5 Assessment and Plan (1) T12 compression fracture: Status: Acute Plan 82-year-old female with past medical history of hypertension, and gout presents to the hospital after a fall, found to have acute T12 compression fracture Acute T12 compression fracture secondary to fall complicated by component projecting in the spinal canal plan for kyphoplasty today pain control PT consult hypertension continue hydralazine, metoprolol lisinopril on hold gout continue allopurinol alcohol use drinks 2-3 drinks every night, with no history of withdrawals no withdrawal symptoms at this time follow CIWA ?cognitive impairment/mild dementia unspecified continue aricept DVT prophylaxis: Lovenox - received 09/05 dose, now on hold for procedure in am, can be resume following procedure attending - dr. Boyd patient requires ongoing inpatient hospitalization due to need for kyphoplasty, pain control Time Spent With Patient Time: Total time managing care of this patient today ____ minutes. Quality Stroke Does the patient have a stroke diagnosis?: No VTE Prior VTE?: No VTE Risk Level:: Medical - moderate - high VTE Device Contraindication: Treatment Not Indicated VTE Drug Contraindication: N/A - Med Ordered
--- NOTE | 2022-09-07 10:48 | PC.NURSE ---
report called to short stay for surgery pre-op
--- NOTE | 2022-09-07 14:19 | HO.ANESPROP2 ---
HPI - Anesthesia Eval Consult details Narrative: 82 F w/ T12 VCF PMFSH Active Problems Active Problems: All Active Problems (Updated 09/05/22 @ 01:24 by Marv Mcleod MD) Fall (Acute) T12 compression fracture (Acute) Past Medical History Medical History Gout Hypertension Family History Family history of problems with anesthesia: No Surgical History Surgical History H/O: hysterectomy History of appendectomy History of Problems with Anesthesia: No Social History Social History Household Members: None Housing: House Alcohol intake: current Alcohol intake frequency: 0-2 drinks per day Patient Tobacco Use Status: Former Tobacco user Second Hand Smoke Exposure: No service: No Current occupational status: retired Meds Allergies Allergy/AdvReac Type Severity Reaction Status Date / Time penicillin V Allergy Unknown Difficulty Verified 09/05/22 20:42 Breathing Penicillins [PCN] Allergy Unknown RASH Verified 09/05/22 20:42 Active Medications: Current Medications Acetaminophen (Acetaminophen 325 Mg Tablet) 650 mg PO Q6H PRN PRN Reason: Pain, Mild (Pain Scale 1-3) Allopurinol (Allopurinol 100 Mg Tablet) 100 mg PO DAILY [facility] Last Admin: 09/07/22 07:42 Dose: 100 mg Docusate Sodium (Docusate Sodium 100 Mg Capsule) 100 mg PO DAILY PRN PRN Reason: Constipation Last Admin: 09/05/22 20:44 Dose: 100 mg Donepezil HCl (Donepezil Hcl 10 Mg Tablet) 10 mg PO DAILY [facility] Last Admin: 09/07/22 07:42 Dose: 10 mg Enoxaparin Sodium (Enoxaparin Sodium 40 Mg/0.4 Ml Syringe) 40 mg SUBCUT Q24H [facility] Last Admin: 09/05/22 09:11 Dose: 40 mg Hydralazine HCl (Hydralazine Hcl 25 Mg Tablet) 25 mg PO TID [facility]; Protocol Last Admin: 09/07/22 07:42 Dose: 25 mg Metoprolol Succinate (Metoprolol Succinate Er 50 Mg Tab.Er.24h) 50 mg PO DAILY [facility]; Protocol Last Admin: 09/07/22 07:42 Dose: 50 mg Morphine Sulfate (Morphine Sulfate 4 Mg/Ml Cartridge) 2 mg IVPUSH Q4H PRN; Protocol PRN Reason: Pain, Severe (Pain Scale 7-10) Last Admin: 09/07/22 05:46 Dose: 2 mg Ondansetron HCl (Ondansetron Hcl 4 Mg/2 Ml Vial) 4 mg IVPUSH Q8H PRN PRN Reason: Nausea and Vomiting Oxycodone HCl (Oxycodone Hcl Immed Release 5 Mg Tablet) 5 mg PO Q6H PRN PRN Reason: Pain, Moderate(Pain Scale 4-6) Last Admin: 09/07/22 07:41 Dose: 5 mg Sodium Chloride (0.9 % Sodium Chloride Flush 3 Ml Syringe) 3 ml IVFLUSH [facility] Last Admin: 09/07/22 07:43 Dose: 3 ml Thiamine HCl (Thiamine Hcl 100 Mg Tablet) 50 mg PO DAILY [facility] Last Admin: 09/07/22 07:42 Dose: 50 mg Home Medications Medication Instructions Recorded Confirmed Last Taken Type allopurinol 100 mg tablet 100 mg PO DAILY 09/04/22 09/04/22 09/03/22 History donepezil 10 mg tablet 10 mg PO DAILY 09/04/22 09/04/22 09/03/22 History hydralazine 25 mg tablet 25 mg PO TID 09/04/22 09/04/22 09/03/22 History lisinopril 2.5 mg tablet 2.5 mg PO DAILY 09/04/22 09/04/22 09/03/22 History metoprolol succinate 50 mg 50 mg PO DAILY 09/04/22 09/04/22 09/03/22 History tablet,extended release 24 hr thiamine HCl (vitamin B1) 50 mg 50 mg PO DAILY 09/04/22 09/04/22 09/03/22 History tablet Exam Exam Date and Time: September 07, [id number] Height,Weight and Vital Signs: Height 5 ft 1 in Weight 110 lb Last Vital Signs Temp 98.7 F 09/07/22 12:47 Pulse 80 09/07/22 12:47 Resp 16 09/07/22 12:47 BP 133/62 09/07/22 12:47 Pulse Ox 95 09/07/22 12:47 O2 Del Method Room Air 09/07/22 12:47 O2 Flow Rate 2 09/06/22 03:29 Pertinent Lab Results Pertinent Lab Results: Laboratory Tests 09/04/22 09/04/22 09/04/22 16:47 16:47 16:47 WBC 3.0 L RBC 4.12 L D Hgb 13.2 D Hct 39.7 D MCV 96.4 MCH 32.0 MCHC 33.2 RDW 13.5 Plt Count 104 L MPV 8.3 L Immature Gran % (Auto) 1.7 H Neut % (Auto) 69.5 Lymph % (Auto) 25.5 Cobb % (Auto) 3.0 Eos % (Auto) 0.0 Baso % (Auto) 0.3 Lymph # (Auto) 0.8 L Cobb # (Auto) 0.1 Eos # (Auto) 0.0 Baso # (Auto) 0.0 Abs Immat Gran (auto) 0.05 H Absolute Neuts (auto) 2.1 Absolute Nucleated RBC 0.000 Nucleated RBC % (auto) 0.0 PT INR Sodium Cancelled 140 Potassium Cancelled 4.4 Chloride Cancelled 106 Carbon Dioxide Cancelled 22 Anion Gap Cancelled 16 BUN Cancelled 21 H Creatinine Cancelled 0.95 Estim Creat Clear Calc Cancelled 33.2 Estimated GFR Cancelled 56 Random Glucose Cancelled 137 H Calcium Cancelled 9.7 Total Bilirubin Cancelled 0.6 AST Cancelled 37 H ALT Cancelled 18 Alkaline Phosphatase Cancelled 183 H Troponin I High Sens Total Protein Cancelled 7.9 Albumin Cancelled 3.9 Ethyl Alcohol < 10 09/04/22 09/04/22 09/05/22 16:48 16:48 05:38 WBC 3.1 L RBC 3.29 L D Hgb 10.5 L D Hct 31.4 L D MCV 95.4 MCH 31.9 MCHC 33.4 RDW 13.5 Plt Count 110 L MPV 8.9 L Immature Gran % (Auto) 0.6 H Neut % (Auto) 42.3 L Lymph % (Auto) 45.8 H Cobb % (Auto) 10.4 Eos % (Auto) 0.6 Baso % (Auto) 0.3 Lymph # (Auto) 1.4 Cobb # (Auto) 0.3 Eos # (Auto) 0.0 Baso # (Auto) 0.0 Abs Immat Gran (auto) 0.02 Absolute Neuts (auto) 1.3 L Absolute Nucleated RBC 0.000 Nucleated RBC % (auto) 0.0 PT 11.9 INR 1.0 Sodium Potassium Chloride Carbon Dioxide Anion Gap BUN Creatinine Estim Creat Clear Calc Estimated GFR Random Glucose Calcium Total Bilirubin AST ALT Alkaline Phosphatase Troponin I High Sens < 2.7 Total Protein Albumin Ethyl Alcohol 09/05/22 09/06/22 09/07/22 05:38 05:21 05:37 WBC 3.0 L RBC 3.47 L Hgb 11.4 L Hct 33.6 L MCV 96.8 MCH 32.9 MCHC 33.9 RDW 13.4 Plt Count 111 L MPV 9.0 L Immature Gran % (Auto) 0.3 Neut % (Auto) 53.5 Lymph % (Auto) 35.3 Cobb % (Auto) 9.3 Eos % (Auto) 1.3 Baso % (Auto) 0.3 Lymph # (Auto) 1.1 L Cobb # (Auto) 0.3 Eos # (Auto) 0.0 Baso # (Auto) 0.0 Abs Immat Gran (auto) 0.01 Absolute Neuts (auto) 1.6 L Absolute Nucleated RBC 0.000 Nucleated RBC % (auto) 0.0 PT INR Sodium 138 133 L Potassium 4.0 3.9 Chloride 106 102 Carbon Dioxide 24 23 Anion Gap 12 12 BUN 17 H 20 H Creatinine 0.78 0.85 Estim Creat Clear Calc 40.5 37.1 Estimated GFR > 60 > 60 Random Glucose 91 110 Calcium 8.8 D 8.5 Total Bilirubin AST ALT Alkaline Phosphatase Troponin I High Sens Total Protein Albumin Ethyl Alcohol Airway TM Dist: >3cm Neck ROM: Full Loose/Missing/Broken Teeth: Yes Assessment and Plan Assessment Anesthesia Assessment: Anesthesia Plan Discussed and Chart Reviewed Final Anesthetic Review Family History of Problems with Anesthesia: No History of Problems with Anesthesia: No ASA Class: III Final Preanesthetic Review: No Changes in Pt Med Stat, Meds/Allgs Chart Reviewed, Consent Obtained/Reviewed and Anes Risks/Benef Reviewed Patient Risk: Intermediate Procedure Risk: Low Anesthetic Plan Anesthetic Plan: MAC: Disposition: Standard PACU
[2022-09-07] MEDS: Acetaminophen 1,000 MG/100 ML PIGGYBACK 400 MG IV (16:00)
[2022-09-07] MEDS: Simethicone 80 MG TAB.CHEW PO (22:41)
--- NOTE | 2022-09-07 22:51 | PC.NURSE ---
assumed care at 1900. Pt was comfortable in bed. 2200 pt called the RN saying that she is having gas pain. Upon assessment, abdomen is softly distended. Warm packs applied to abdomen and Provider ordered Semithicone po awaiting for effectiveness. Pt has a Herbert. Initial output was dark and concentrated. Pt encouraged to drink water. Provider ordered a UA pending collection.
[2022-09-07 23:48] LABS: Appearance Urine Clear; Color Urine Yellow; Glucose Urine UA Negative (Negative); Leukocyte Esterase Urine Small (1+) (Negative); Nitrite Urine Negative (Negative); PH 5.5 (5.0-9.0); Specific Gravity - Urine 1.015 (1.005-1.025); UMIC TRIGGER UACC YES; Urine Blood Moderate (2+) (Negative); Urine Ketones Negative (Negative); Urine Protein 100 (2+) mg/dL (Neg-Trace)
[2022-09-07 23:50] LABS: Bacteria Urine 4+ (None Seen); RBC Urine >20 /HPF (0-2); Squamous Epithelial Cell Urine 0-2 /HPF (0-2); UACC Culture Trigger YES; WBC Urine 21-50 /HPF (0-5)
[2022-09-08 04:00] VITALS: BP 152/69; PULSE 76; RESP 16; TEMP 36.6; O2SAT 91
[2022-09-08 06:52] LABS: Anion Gap 13 (12-20); Blood Urea Nitrogen 22 mg/dL (9-16); Calcium 8.6 mg/dL (8.4-10.2); Carbon Dioxide 23 mmol/L (22-29); Chloride 102 mmol/L (96-108); Creatinine Clr Calc Pharmacy 40.5; Estimated Glomerular Filt Rate > 60; Glucose Random 102 mg/dL (60-115); Potassium 3.9 mmol/L (3.3-5.1); Sodium 134 mmol/L (135-145)
[2022-09-08 07:13] VITALS: BP 135/65; PULSE 81; RESP 18; TEMP 37.1; O2SAT 93
[2022-09-08] MEDS: Morphine Sulfate 4 MG/ML CARTRIDGE 2 MG IVPUSH (09:15)
[2022-09-08] MEDS: Thiamine HCL 100 MG TABLET 50 MG PO (09:16)
[2022-09-08] MEDS: Donepezil HCl 10 MG TABLET PO (09:17)
[2022-09-08] MEDS: hydrALAZINE HCl 25 MG TABLET PO ×2 (09:17→14:23)
[2022-09-08] MEDS: allopurinoL 100 MG TABLET PO (09:17)
[2022-09-08] MEDS: Metoprolol Succinate ER 50 MG TAB.ER.24H PO (09:17)
[2022-09-08] MEDS: 0.9 % Sodium Chloride Flush 3 ML SYRINGE IVFLUSH (09:17)
[2022-09-08 09:39] VITALS: BP 135/65; PULSE 81; O2SAT 93
--- NOTE | 2022-09-08 11:58 | HO.POSTANES ---
Post Anesthesia Evaluation Post Anesthesia Evaluation Date of Service: 09/08/22 Vital Signs: Vital Signs Temp Pulse Resp BP Pulse Ox O2 Del Method 09/08/22 09:39 81 135/65 93 09/08/22 07:13 98.7 F 81 18 135/65 93 Room Air 09/08/22 04:00 97.8 F 76 16 152/69 H 91 L Room Air Anesthesia: Monitored Mental Status: Awake Pain Control: Satisfactory (complaining of pain) Nausea/Vomiting: None Hydration: Adequate Anesthesia-Related Issues: No Anes. Related Issues
--- NOTE | 2022-09-08 12:36 | MHC.CM.PN ---
Per MD rounds , Pt is ready to discharge to [facility]. [facility]. They have offered a bed. The facility is seeking insurance authorization. Discharge is anticipated later today is auth received this afternoon. Patients family, RN and MD have been notified of discharge plan.
[2022-09-08 14:22] VITALS: BP 123/60; PULSE 71; RESP 16; O2SAT 95
[2022-09-08] MEDS: oxyCODONE HCl Immed Release 5 MG TABLET PO (14:23)
[2022-09-08 15:19] VITALS: BP 131/62; PULSE 77; RESP 18; TEMP 36.9; O2SAT 98
--- NOTE | 2022-09-08 16:18 | PM.DS ---
DS: Providers Provider Date of Service: 09/08/22 Date of admission: 09/04/22 23:05 Date of discharge: 09/08/22 Primary care physician: Radha Hummel NP DS: Diagnosis Discharge Diagnosis (1) T12 compression fracture: Status: Acute (2) Hypertension: Status: Acute (3) Gout: Status: Acute DS: Summary Hospital Course Hospital Course: ?82-year-old female past medical history of hypertension, gout presents to the hospital with complaints of a fall and pain in the midback.? Patient reports that she was standing, went to turn around, slipped and fell, no head injury, she fell on her back, no loss of consciousness prior or after, no seizure-like activity, no chest pain, no palpitations, no dizziness, no headache no change in vision, denies any nausea vomiting, no abdominal pain, no diarrhea constipation, no urinary symptoms and no lower extremity edema. she has mid back pain, 10/10, constant, nonradiating, no associated with numbness tingling or weakness in the lower extremities. Hospital Course Patient admitted to general medical floor with IV and oral agents. On 09/07, patient underwent T12 kyphoplasty done by Interventional Radiology without issue. On the day of discharge she ambulated to the hallway and back with the help of a walker and physical therapist. Pain control was adequate. At this point in time she is medically acceptable for transfer to rehab facility Time Spent with Patient Time attestation: Total time managing care of this patient today ____ minutes. Discharge coordination time: Greater than 30 minutes Quality: Safe Use of Opioids Does Pt have an Active Cancer Diagnosis on the Problem List?: No Quality: Stroke Does the patient have a stroke diagnosis?: No Physical Exam Vital Signs: Vital Signs: Last Vital Signs Temp 98.5 F 09/08/22 15:19 Pulse 77 09/08/22 15:19 Resp 18 09/08/22 15:19 BP 131/62 09/08/22 15:19 Pulse Ox 98 09/08/22 15:19 O2 Del Method Room Air 09/08/22 15:19 O2 Flow Rate 2 09/07/22 15:52 BMI result Body Mass Index 20.8 Const: Other: Awake alert no acute distress Resp: Other: Clear to auscultation bilaterally no rales rhonchi or wheezes Cardio: Other: No S4; positive S1-S2; no S3 murmurs rubs or gallops GI: Other: Soft nontender nondistended normoactive bowel sounds Extrem: Other: No edema bilaterally DS: Data Data Completed and Pending Labs on day of discharge: Laboratory Results - last 24 hr 09/07/22 09/08/22 23:40 05:19 Sodium 134 L Potassium 3.9 Chloride 102 Carbon Dioxide 23 Anion Gap 13 BUN 22 H Creatinine 0.78 Estim Creat Clear Calc 40.5 Estimated GFR > 60 Random Glucose 102 Calcium 8.6 Urine Color Yellow Urine Appearance Clear Urine pH 5.5 Ur Specific [place] 1.015 Urine Protein 100 (2+) H Urine Glucose (UA) Negative Urine Ketones Negative Urine Blood Moderate (2+) H Urine Nitrite Negative Ur Leukocyte Esterase Small (1+) H Urine RBC >20 H Urine WBC 21-50 H Ur Squamous Epith Cells 0-2 Urine Bacteria 4+ Hyaline Casts 3-5 Discharge Plan Discharge Anticipated Discharge Date/Time: 09/08/22 16:07 Patient Disposition: Xfer SNF Discharge Diagnosis: T12 vertebral fracture Referrals: [facility] [Other] - 1 Week (Short term rehab) Radha Hummel NP [Primary Care Provider] - 1 Week Discharge Medications: New oxycodone 5 mg Tablet 5 mg PO Q6H PRN (Reason: Pain, Moderate(Pain Scale 4-6)) Qty: 60 0RF Rx Instructions: Partial Fill upon patient request. Continued metoprolol succinate 50 mg tablet extended release 24 hr 50 mg PO DAILY donepezil 10 mg tablet 10 mg PO DAILY hydralazine 25 mg tablet 25 mg PO TID allopurinol 100 mg tablet 100 mg PO DAILY lisinopril 2.5 mg tablet 2.5 mg PO DAILY thiamine HCl (vitamin B1) 50 mg tablet 50 mg PO DAILY Discharge Orders: Discharge Order (Routine); Ordered 09/08/22 Ordered By: Leo Hercules Diet: Advance to usual diet Activity on Discharge: As tolerated Stand Alone Forms: Patient Portal Discharge page Care Plan Goals: Use oxycodone for pain. Titrate as indicated Health Concerns: Continue all other pre-hospital medicines Plan of Treatment: As per receiving facility Assessment: See discharge summary
[2022-09-08 16:22] LABS: COVID-19 Test Negative (Negative); IDNOW Serial# BCCEAD1C
== END 2022-09-08 18:51 | disposition skilled nursing facility (03) | DRG 517 ==
LOC: HO.ED 17:31 → HO.EDOVER 23:11 → HO.S3 09-05 01:42
PROVIDERS: Nurse Practitioner Acute Care; Physician Assistant Medical; Radiology Diagnostic Radiology; Student in an Organized Health Care Education/Training Program; Admitting Provider Internal Medicine; Emergency Provider Internal Medicine; PCP Nurse Practitioner Family; Visit Provider Hospitalist
PROC: 0PS43ZZ Reposition Thoracic Vertebra, Percutaneous Approach (ICD-10-PCS; principal; 2022-09-07 13:30)
DX: S22.080A Wedge compression fracture of T11-T12 vertebra, initial encounter for closed fracture (principal); W19.XXXA Unspecified fall, initial encounter; M10.9 Gout, unspecified; F03.A0 Unspecified dementia, mild, without behavioral disturbance, psychotic disturbance, mood disturbance, and anxiety; I10 Essential (primary) hypertension; Z20.822 Contact with and (suspected) exposure to COVID-19; M85.80 Other specified disorders of bone density and structure, unspecified site; Z88.0 Allergy status to penicillin; Z87.891 Personal history of nicotine dependence; Z79.899 Other long term (current) drug therapy
CPT/HCPCS: 22513; 36415; 70450; 72125; 72128; 74177; 80048; 80053; 80307; 81001; 84484; 85025; 85610; 87086; 87088; 87186; 87635; 93005; 97116; 97162; 97530; 99285; C1758; J0131; J1650; J2270; J2405; J3010

== ENCOUNTER 2023-04-27 15:15 | Outpatient (REF) | payer MEDICARE, SELFPAY ==
--- NOTE | ~2023-04-27 | XR_ITS ---
EXAMINATION: XR CHEST CLINICAL INFORMATION: Pneumonia. COMPARISON: CT thoracic spine 09/07/2022 TECHNIQUE: 2 views of the chest were obtained. FINDINGS: Kyphoplasty cement is present at T12 with compression fracture. Otherwise no significant abnormality is noted involving the heart, lungs, mediastinum, bony thorax or soft tissues. The aorta is mildly unfolded. No infiltrates, effusions or lung masses are seen. XR/XR chest 2V IMPRESSION: No acute intrathoracic disease. Kyphoplasty cement at T12.
== END 2023-04-27 15:16 | disposition home or self-care (01) ==
LOC: HO.XRAY 15:15
PROVIDERS: PCP Nurse Practitioner Adult Health; Visit Provider Nurse Practitioner Adult Health
DX: E87.8 Other disorders of electrolyte and fluid balance, not elsewhere classified (principal); J18.8 Other pneumonia, unspecified organism
CPT/HCPCS: 71046

== ENCOUNTER 2023-05-13 15:00 | Outpatient (REF) | payer MEDICARE, SELFPAY ==
[2023-05-13 16:25] LABS: Hematocrit 29.3 % (37.0-47.0); Hemoglobin 9.4 g/dl (12.0-16.0); Mean Corpuscular HGB Conc 32.1 g/dl (31.0-35.0); Mean Corpuscular Volume 96.7 fL (80.0-98.0); Mean Platelet Volume 9.9 fL (9.4-12.3); Platelet Count 170 X10*3/uL (160-400); Red Blood Count 3.03 X10*6/uL (4.20-5.50); Red Cell Distribution Width 13.1 % (11.0-16.0); White Blood Count 3.5 X10*3/uL (4.8-10.8)
== END 2023-05-13 15:01 | disposition home or self-care (01) ==
LOC: HO.HMGCLDS 15:00
PROVIDERS: PCP Nurse Practitioner Family; Visit Provider Nurse Practitioner Adult Health
DX: D50.9 Iron deficiency anemia, unspecified (principal)
CPT/HCPCS: 36415; 85027